=== PATIENT | female | born 1945 | race Caucasian/White ===

== ENCOUNTER 2021-06-04 17:51 | Inpatient (IN) | payer OTHER, MEDICARE ==
[~2021-06-04] VITALS: Ht 160 cm; Wt 71.7 kg
[2021-06-04 19:45] LABS: ABSOLUTE NEUTROPHILS 6.6 thou/uL (1.4-8.2); BASOPHILS 0.4 % (0.0-2.0); EOSINOPHILS 0.9 % (0.0-3.0); HEMATOCRIT 39.2 % (37.0-47.0); HEMOGLOBIN 13.7 gm/dL (12.0-15.0); LYMPHOCYTES 23.7 % (24.0-44.0); MCH 32.1 pg (26.0-34.0); MCHC 34.9 g/dL (28.0-37.0); MCV 92.1 fL (80.0-100.0); MONOCYTES 5.9 % (1.0-8.0); PLATELET COUNT 402 thou/uL (150-400); POLYS 69.1 % (36.0-66.0); RBC 4.26 mil/uL (4.20-5.00); RDW 13.3 % (10.5-14.5); WBC 9.5 thou/uL (4.0-11.0)
[2021-06-04 20:00] VITALS: BP 140/74
[2021-06-04 20:02] LABS: APTT 27.1 Seconds (24.5-32.8); INR 0.97; PROTIME 10.6 Seconds (10.5-12.1)
[2021-06-04 23:20] LABS: URINE BILIRUBIN NEGATIVE (Negative); URINE BLOOD NEGATIVE (Negative); URINE CLARITY CLEAR; URINE COLOR YELLOW; URINE GLUCOSE-RANDOM* NEGATIVE (Negative); URINE KETONES NEGATIVE (Negative); URINE NITRITE-REFLEX NEGATIVE (Negative); URINE PROTEIN (DIPSTICK) NEGATIVE (Negative); URINE UROBILINOGEN 0.2 E.U./dl (0.2-1.0)
[2021-06-04 23:26] LABS: URINE LEUKOCYTES-REFLEX 2+ (Negative)
[2021-06-04 23:28] LABS: BACTERIA-REFLEX 1-9 Few /HPF (None Seen); CASTS None Seen /LPF (None Seen); CRYSTALS None Seen /LPF (None Seen); MUCUS 0-3 Light strn/LPF (None Seen); SQUAMOUS 0-3 Few /LPF (0-3); URINE RBC 1-2 Rare /HPF (NONE SEEN); URINE WBC-REFLEX 6-15 Few /HPF (0-5)
[2021-06-05] VITALS (10 sets, daily range): BP systolic 103–130; BP diastolic 56–69
[2021-06-05] MEDS ORDERED: ASA81BEC PO (00:49)
[2021-06-05] MEDS ORDERED: LIPITOR 40 MG T40 M1 PO (00:50)
[2021-06-05] MEDS ORDERED: LIDODERM1 EACH TRANSDERM (00:51)
[2021-06-05] MEDS ORDERED: COZAAR100 MG PO (00:53)
[2021-06-05] MEDS ORDERED: TOPROL XL100 MG PO (00:55)
[2021-06-05] MEDS ORDERED: NORVASC5 MG PO (00:56)
[2021-06-05] MEDS ORDERED: SUPER THERAVIT1 EACH PO (00:56)
[2021-06-05] MEDS ORDERED: HYDROCHLOROTHIA25 M1 PO (00:57)
[2021-06-05] MEDS ORDERED: PERCOCET 7.5-31 EACH PO (00:58)
[2021-06-05 03:53] LABS: ABSOLUTE NEUTROPHILS 7.5 thou/uL (1.4-8.2); BASOPHILS 0.4 % (0.0-2.0); EOSINOPHILS 0.8 % (0.0-3.0); HEMOGLOBIN 12.6 gm/dL (12.0-15.0); LYMPHOCYTES 20.5 % (24.0-44.0); MCH 31.9 pg (26.0-34.0); MCHC 34.2 g/dL (28.0-37.0); MCV 93.3 fL (80.0-100.0); PLATELET COUNT 334 thou/uL (150-400); POLYS 71.3 % (36.0-66.0); RBC 3.97 mil/uL (4.20-5.00); RDW 13.7 % (10.5-14.5); WBC 10.5 thou/uL (4.0-11.0)
[2021-06-05 05:02] LABS: ALBUMIN 3.8 g/dL (3.4-5.0); CALCIUM 9.7 mg/dL (8.5-10.1); CREATININE 0.6 mg/dL (0.6-1.0); MAGNESIUM 2.3 mg/dL (1.8-2.4); POTASSIUM 3.9 mmol/L (3.5-5.1); TOTAL BILIRUBIN 0.2 mg/dL (0.2-1.0); TOTAL PROTEIN 7.7 g/dL (6.4-8.2)
[2021-06-05 07:09] LABS: GLYCOHEMOGLOBIN (HGB A1C) 5.9 % (4.8-5.6)
--- NOTE | 2021-06-05 07:17 | NUR ---
ASSUMED PT CARE AT 1900, PT IS ALERT AND ORIENTEDX4, SR ON TELE, DENIES CP OR SOA, PT INITIATED ON HEPARIN GTT AND NITRO GTT PER CT, ADMISSION ASSESSMENT, HX AND EDUCATION COMPLETED, MEDS RECONCILED AND PHARMACY UPDATED, HEPARIN TITRATED PER PROTOCOL, REPORT GIVEN TO PRE[facility], PT TRANSPORTED TO PREOP AT AROUND 0635, BELONGINGS SEND TO ICU
--- NOTE | 2021-06-05 08:24 | NUR ---
PT HAVING HT SURGERY TODAY. AWAIT NEW OT ORDERS S/P SURGERY.
--- NOTE | 2021-06-05 08:51 | NUR ---
REQUEST SP ORDERS FOR PT EVAL AND TREAT. Pt OUT FOR SURGERY THIS AM.
[2021-06-05 12:51] LABS: MCV 92.8 fL (80.0-100.0)
[2021-06-05 12:52] LABS: HEMATOCRIT 20.5 % (37.0-47.0); MCH 30.9 pg (26.0-34.0); MCHC 33.3 g/dL (28.0-37.0); RBC 2.21 mil/uL (4.20-5.00); RDW 13.5 % (10.5-14.5); WBC 14.2 thou/uL (4.0-11.0)
[2021-06-05 12:56] LABS: HEMOGLOBIN 6.8 gm/dL (12.0-15.0)
[2021-06-05 13:15] LABS: INR 1.35; PROTIME 14.5 Seconds (10.5-12.1)
[2021-06-05 13:17] LABS: APTT 24.3 Seconds (24.5-32.8)
[2021-06-05 13:41] LABS: POC BE 3 mmol/L (-2.0 to +3.0); POC GLUCOSE 112 mg/dL (70-99); POC HCO3 26.3 mmol/L (22.0-26.0); POC HEMOGLOBIN 11.9 g/dL (12.0-15.0); POC POTASSIUM 4.1 mmol/L (3.5-5.1); POC SODIUM 133 mmol/L (136-145); POC pCO2 35.7 mmHg (35.0-45.0); POC pH 7.475 (7.360-7.450)
[2021-06-05 13:41] LABS: POC BE -3 mmol/L (-2.0 to +3.0); POC CA IONIZED 4.4 mg/dL (4.5-5.3); POC GLUCOSE 164 mg/dL (70-99); POC HCO3 21.7 mmol/L (22.0-26.0); POC HEMOGLOBIN 7.5 g/dL (12.0-15.0); POC POTASSIUM 4.3 mmol/L (3.5-5.1); POC SODIUM 133 mmol/L (136-145); POC pCO2 32.5 mmHg (35.0-45.0); POC pH 7.433 (7.360-7.450)
[2021-06-05 13:41] LABS: POC BE -2 mmol/L (-2.0 to +3.0); POC CA IONIZED 5.6 mg/dL (4.5-5.3); POC GLUCOSE 145 mg/dL (70-99); POC HCO3 23.8 mmol/L (22.0-26.0); POC HEMOGLOBIN 7.1 g/dL (12.0-15.0); POC POTASSIUM 3.7 mmol/L (3.5-5.1); POC SODIUM 135 mmol/L (136-145); POC pCO2 42.8 mmHg (35.0-45.0); POC pH 7.353 (7.360-7.450)
[2021-06-05 13:41] LABS: POC BE 4 mmol/L (-2.0 to +3.0); POC CA IONIZED 5.2 mg/dL (4.5-5.3); POC GLUCOSE 126 mg/dL (70-99); POC HCO3 28.8 mmol/L (22.0-26.0); POC HEMOGLOBIN 10.5 g/dL (12.0-15.0); POC POTASSIUM 4.5 mmol/L (3.5-5.1); POC SODIUM 132 mmol/L (136-145); POC pCO2 45.3 mmHg (35.0-45.0); POC pH 7.411 (7.360-7.450)
[2021-06-05 13:41] LABS: POC BE 0 mmol/L (-2.0 to +3.0); POC CA IONIZED 4.4 mg/dL (4.5-5.3); POC GLUCOSE 146 mg/dL (70-99); POC HCO3 23.6 mmol/L (22.0-26.0); POC HEMOGLOBIN 8.2 g/dL (12.0-15.0); POC POTASSIUM 4.5 mmol/L (3.5-5.1); POC SODIUM 133 mmol/L (136-145); POC pCO2 31.4 mmHg (35.0-45.0); POC pH 7.483 (7.360-7.450)
[2021-06-05 13:41] LABS: POC BE 0 mmol/L (-2.0 to +3.0); POC CA IONIZED 4.5 mg/dL (4.5-5.3); POC GLUCOSE 166 mg/dL (70-99); POC HCO3 24.7 mmol/L (22.0-26.0); POC HEMOGLOBIN 7.5 g/dL (12.0-15.0); POC POTASSIUM 4.6 mmol/L (3.5-5.1); POC SODIUM 135 mmol/L (136-145); POC pCO2 39.9 mmHg (35.0-45.0); POC pH 7.399 (7.360-7.450)
[2021-06-05 14:08] LABS: HEMATOCRIT 29.8 % (37.0-47.0); MCH 31.6 pg (26.0-34.0); MCHC 34.2 g/dL (28.0-37.0); MCV 92.3 fL (80.0-100.0); RBC 3.23 mil/uL (4.20-5.00); RDW 13.5 % (10.5-14.5)
[2021-06-05 14:10] LABS: HEMOGLOBIN 10.2 gm/dL (12.0-15.0)
[2021-06-05 14:18] LABS: CALCIUM 8.8 mg/dL (8.5-10.1); CREATININE 0.7 mg/dL (0.6-1.0); POTASSIUM 4.1 mmol/L (3.5-5.1)
[2021-06-05 14:19] LABS: MAGNESIUM 2.8 mg/dL (1.8-2.4)
[2021-06-05 14:25] LABS: APTT 27.6 Seconds (24.5-32.8); INR 1.12; PROTIME 12.1 Seconds (10.5-12.1)
[2021-06-05 14:29] LABS: BE(vivo) -5.8 mmol/L (-2 to +3); HCO3 20.5 mmol/L (22.0-26.0); PCO2 43.7 mmHg (35.0-45.0); PO2 96.4 mmHg (80.0-100.0); sO2 96.6 % (92.0-98.0)
--- NOTE | 2021-06-05 17:03 | NUR ---
PT ARRIVED FROM THE OR AT 1340 WITH OR STAFF MEMBERS ESCORT, AT THE TIME OF ARRIVAL PT WAS STARTED ON CARDENE GTT PER HTN AND CABG PROTOCOL. PT HAS NOT BEEN ON SEDATION SINCE LEAVING THE OR. PT'S HEMODYNAMIC VALUES ACCEPTABLE, PT PROGRESSED ONWARD TO TITRATING OFF OF THE CARDENE. SBP AROUND 130s SINCE. //CARDIOLOGY SELF CONTAINED BEHAVIOR UNIT TEACHER STOPPED BY TO SEE THE PATIENT. PT'S ALSO SAW THE PT FOR A BRIEF MOMENT, RN WENT OVER PT'S BELONGINGS WITH THE TO ENSURE ALL THE BELONGINGS WERE PRESENT IN THE ROOM. PT'S STATED IMPORTANCE OF CHARGING THE HEARING AID OVER NIGHTM, RN WILL FOLLOW THROUGH AND REPORT THIS TO THE ONCOMING RN. CURRENTLY WORKING ON EXTUBATING THE PATIENT.
[2021-06-05 17:14] LABS: BE(vivo) -5.8 mmol/L (-2 to +3); HCO3 19.7 mmol/L (22.0-26.0); PCO2 38.5 mmHg (35.0-45.0); sO2 97.3 % (92.0-98.0)
[2021-06-05 17:15] LABS: pH 7.326 (7.360-7.450)
[2021-06-05 18:59] LABS: INR 1.1; PROTIME 11.9 Seconds (10.5-12.1)
[2021-06-06 05:19] LABS: HEMATOCRIT 23.4 % (37.0-47.0); MCH 31.7 pg (26.0-34.0); MCHC 34.3 g/dL (28.0-37.0); MCV 92.2 fL (80.0-100.0); RBC 2.54 mil/uL (4.20-5.00); RDW 13.7 % (10.5-14.5); WBC 11.1 thou/uL (4.0-11.0)
[2021-06-06 05:43] LABS: CALCIUM 7.9 mg/dL (8.5-10.1); CREATININE 0.5 mg/dL (0.6-1.0); MAGNESIUM 2.2 mg/dL (1.8-2.4); POTASSIUM 3.3 mmol/L (3.5-5.1)
--- NOTE | 2021-06-06 08:06 | EKG ---
[place] [address] [facility] [employer] [address] ELECTROCARDIOGRAM REPORT Name: EUGENIE SANCHEZ Room #: 249-P [facility] IN M.R.#: [id number] Admission: 06/04/21 Attend Phys: Mik Reynoso MD Discharge: Date of : 47 Report #: [id number] [facility] Test Date: 2021-06-05 Test Time: 14:40:39 Pat Name: EUGENIE SANCHEZ Department: Room: 249 Gender: F Lumber Stacker Operator: ALTHEA : 1945 Requested By: Arias Graf Order Number: [id number] : Mehul Bustillos Measurements Intervals [place] Rate: 106 P: 76 MA: 139 QRS: 83 QRSD: 138 T: -38 QT: 392 QTc: 521 Interpretive Statements Sinus tachycardia IVCD, consider atypical RBBB No previous ECG available for comparison Electronically Signed On 06-06-2021 8:06:33 WHEEL FITTER by Mehul Bustillos [email or web address] <ELECTRONICALLY SIGNED> By: Mehul Bustillos MD, [facility] 06/06/21 0806 1440 1440 Mehul Bustillos MD, FACC /EPI
--- NOTE | 2021-06-06 08:08 | EKG ---
[address] [place] [address] ELECTROCARDIOGRAM REPORT Name: DANIELEUGENIE G Room #: 249-P ADM IN M.R.#: [id number] Admission: 06/04/21 Attend Phys: Mik Reynoso MD Discharge: Date of : 47 Report #: [id number] [facility] Test Date: 2021-06-06 Test Time: 07:19:12 Pat Name: EUGENIE SANCHEZ Department: Room: 249 Gender: F Rheostat Assembler: ALTHEA : 1945 Requested By: Arias Graf Order Number: [id number] : Mehul Bustillos Measurements Intervals [place] Rate: 97 P: 36 W[place]: 116 QRS: 49 QRSD: 108 T: 62 QT: 462 QTc: 587 Interpretive Statements Sinus rhythm Borderline short [place] interval Prolonged QT interval Compared to ECG 06/05/2021 14:40:39 Prolonged QT interval now present Sinus tachycardia no longer present Electronically Signed On 06-06-2021 8:08:47 TRANSITION ASSISTANT by Mehul Bustillos [email or web address] <ELECTRONICALLY SIGNED> By: Mehul Bustillos MD, [facility] 06/06/2108 8 8 Mehul Bustillos MD, [facility] /EPI
[2021-06-06 10:01] LABS: POC BE 0 mmol/L (-2.0 to +3.0); POC CA IONIZED 4.2 mg/dL (4.5-5.3); POC GLUCOSE 120 mg/dL (70-99); POC HCO3 23.4 mmol/L (22.0-26.0); POC HEMOGLOBIN 8.2 g/dL (12.0-15.0); POC SODIUM 130 mmol/L (136-145); POC pCO2 32.9 mmHg (35.0-45.0); POC pH 7.459 (7.360-7.450)
--- NOTE | 2021-06-06 10:38 | NUR ---
Pt s/p CABG x 5 on 06/05. Remains in ICU. Hx HTN, CAD, HLD. Will address any nutrition education needs once transferred out ICU and at more appropriate time.
[2021-06-06 12:58] VITALS: BP 116/49
--- NOTE | 2021-06-06 13:27 | O ---
[facility] [place] [address] OPERATIVE REPORT Name: EUGENIE SANCHEZ Room #: 249-P ADM IN M.R.#: [id number] Admission: 06/04/21 Attend Phys: Mik Reynoso MD Discharge: Date of : 47 Report #: [id number] THIS REPORT FOR: cc: FAM - Family physician unknown FAM - Family physician unknown Arias Graf MD ~ DATE OF SERVICE: 06/05/2021 PREOPERATIVE DIAGNOSIS: Coronary artery disease. POSTOPERATIVE DIAGNOSIS: Coronary artery disease. OPERATION: Coronary artery bypass x 5 including left internal mammary artery to left anterior descending artery, saphenous vein to diagonal and marginal arteries and saphenous vein to posterior descending and posterolateral branches of the right coronary and endoscopic harvest, left greater saphenous vein. SURGEON: Arias Graf MD ASSISTANTS: BRAYAN Salinas. ANESTHESIA: General. INDICATIONS: The patient is a 75-year-old sent from [facility]. The patient was admitted to that facility with non-ST elevation infarct. Catheterization demonstrated a tight culprit lesion on the right coronary artery as well as LAD, diagonal and marginal stenosis. Left ventricular function is satisfactory overall. FINDINGS AND TECHNIQUE: After general anesthesia was established, saphenous vein was harvested with an endoscopic approach and prepared for use as a conduit. Exposure was obtained through median sternotomy. Left internal mammary artery was harvested from chest wall. Pericardial well was made. Cannulation sutures were placed. Heparin was given. Aorta was cannulated. Right atrium was cannulated. Cardioplegia needle was positioned in the aortic root. Retrograde cardioplegia catheter was placed in the coronary sinus. Cardiopulmonary bypass was established. The aorta was cross clamped. Antegrade and retrograde cardioplegia were given. Ice was poured in the pericardial well. The heart was stopped. During electromechanical arrest, the distal anastomoses were performed. An end-to-side anastomosis was made between vein and the posterolateral branch of the right coronary. Cold cardioplegia was given. The same segment of vein was sewn in olwu-qg-[id number] fashion to the posterior descending artery. The PDA had diffuse plaque within it. Cold cardioplegia was given. [facility] [address] [place] [address] OPERATIVE REPORT Name: EUGENIE SANCHEZ Room #: 249-P [facility] IN M.R.#: [id number] Admission: 06/04/21 Attend Phys: Mik Reynoso MD Discharge: Date of : 47 Report #: [id number] A separate segment of vein was sewn in end-to-side fashion to the large marginal artery. Cold cardioplegia was given. The same segment of vein was sewn in dbzb-dm-vjuf fashion to the diagonal artery. Cold cardioplegia was given. Left internal mammary artery was sewn in end-to-side fashion to the left anterior descending artery. Patency of this vessel was checked with the temperature technique and the Doppler. Cold cardioplegia was given. Two proximal anastomoses were performed. These were complete. Warm retrograde cardioplegia was given followed by warm continuous blood to the coronary sinus. When this infusion was complete, the crossclamp was removed. De-airing maneuvers were performed. The anastomoses were inspected and found to be satisfactory. As the patient warmed, nice cardiac activity resumed, chest tubes and pacing wires were placed. A marker was placed around the proximal anastomoses. When the patient was warmed, she was weaned from cardiopulmonary bypass. Venous cannula was removed. Protamine was given. The aortic cannula was removed. Flows were measured in the bypass grafts. As the patient warmed, nice cardiac activity resumed. Chest tubes and pacing wires were placed. A marker was placed around the proximal anastomoses. When the patient was warmed, she was weaned from cardiopulmonary bypass. Venous cannula was removed. Protamine was given. The aortic cannula was removed. Flows were measured in the bypass grafts. When hemostasis was satisfactory, chest was irrigated with antibiotic solution and closed in the usual fashion. The patient was taken to the Intensive Care Unit in good condition having tolerated the procedure well. All counts were reported as correct. <ELECTRONICALLY SIGNED> By: Arias Graf MD 06/06/21 1327 1833 1841 Arias Graf MD /nt
--- NOTE | 2021-06-06 14:57 | NUR ---
Case opened to follow for dc planning. Pt is in ICU pod#1 CABG and doing well. She is up to the chair and on 1liter of o2. She is alert and conversant. Her spouse is at bedside. They are from [place], [place]. She transfered from [facility] emergently for heart surgery. She indicates she was indep with gait/adl's prior to admission. She and her spouse both drive and share IADLs. She has 3 steps to enter her home and 10 up from the basement garage. Her pcp is Dr. Bubba Santiago out of [facility]. Spouse's cell number is [phone]. PT/OT have evaluated the pt. CM role introduced. Will follow along should the pt need any dme /or hh referrals.
--- NOTE | 2021-06-06 18:21 | NUR ---
pt progressed today. primarily chronic back, also surgical discomfort controlled with hydrocodone. lidocaine patch to back enhances discomfort relief. SR, rosalina wrap removed, sy scds intact, pacing wires capped, mct x2 removed, well tolerated. insulin and amiodarone gtts dc'd, cardene titrated off. swan discontinued, introducer intact. down to room air, then replaced at 1 L/nc related to exertion of returning to bed. (pt up to chair for @ 6 hrs today- well tolerated.) pulling 500-600 on incentive spirometer, scant secretions coughed up. tolerating heart healthy diet, adequate urine output. spouse present for most of day. providing support to his . Dr. Graf present to see pt x 2.
[2021-06-07] VITALS (12 sets, daily range): BP systolic 89–138; BP diastolic 37–81
[2021-06-07 05:32] LABS: HEMATOCRIT 22.9 % (37.0-47.0); HEMOGLOBIN 7.8 gm/dL (12.0-15.0); MCH 31.2 pg (26.0-34.0); MCHC 33.8 g/dL (28.0-37.0); MCV 92.3 fL (80.0-100.0); RBC 2.48 mil/uL (4.20-5.00); WBC 11.9 thou/uL (4.0-11.0)
--- NOTE | 2021-06-07 13:00 | NUR ---
in early am, Dr. Spence, Dr. Miller present to see pt. when pt up to chair with Baltazar, physical therapist this am. brief nausea with exertion, cool wash cloth applied, nausea resolved. Dr. Graf present to see pt in am. assisted back to bed with Baltazar, physical therapist. hydrocodone administered for chronic lower mid-back discomfort. nausea with emesis- zofran iv given, see mars. pt stated the orange juice for breakfast may have caused the nausea. spouse present in room providing support to his .
--- NOTE | 2021-06-07 18:16 | NUR ---
1630 troubleshooting edson related to dampened waveform, unable to draw back blood, line flushes. 1700 Dr. Graf present. updated on pt status. pacing wires removed, pct removed. portable chest xray completed, Dr. Graf present to observe. 1730 radial edson and frederick removed. 181 pt sat on edge of bed, well tolerated, then up to chair. all well tolerated. coughed up moderate amount sanchez sputum. appetite poor, denies nausea.
--- NOTE | 2021-06-07 19:05 | NUR ---
Ashlee, CCU RN called ICU to receive report. report given at 1900. transferring pt to floor in wheelchair.
[2021-06-08] VITALS (7 sets, daily range): BP systolic 93–110; BP diastolic 33–64
--- NOTE | 2021-06-08 07:43 | NUR ---
pt arrived from icu to room 200 nausea continues iv zofran given and crackers later agreed to broth and crackers and her po meds for the noc no futher c/o of nausea, prn pain meds given at hs repositions self in bed using her heart pillow, vss, replaced lateral dressing that was saturated with seriosang. drainage and reinfoced with foam tape, up to void with assist to bsc several times thru the noc, report given to next shift to con't ppoc.
[2021-06-09 03:00] VITALS: BP 106/58
[2021-06-09 04:34] LABS: HEMATOCRIT 22.9 % (37.0-47.0); HEMOGLOBIN 7.7 gm/dL (12.0-15.0); MCH 31.4 pg (26.0-34.0); MCHC 33.8 g/dL (28.0-37.0); MCV 92.9 fL (80.0-100.0); RBC 2.47 mil/uL (4.20-5.00); RDW 13.7 % (10.5-14.5); WBC 9.7 thou/uL (4.0-11.0)
[2021-06-09 04:57] LABS: CALCIUM 8.2 mg/dL (8.5-10.1); CREATININE 0.5 mg/dL (0.6-1.0)
--- NOTE | 2021-06-09 06:29 | NUR ---
ASSUMED PT CARE AT 1900, ALERT AND ORIENTED, C/O BACK AND STERNUM PAIN, PRN TYL AND HYDROCODONE GIVEN WITH PARTIAL RELIEF, SR ON TELE, ASSESSMENTS CHARTED, MEDS GIVEN PER EMAR, VITAL SIGNS STABLE, NO BOWEL MOVEMENT THIS SHIFT, COLACE ADDED BID, NO EVENTS THIS SHIFT, WILL PASS ON REPORT TO DAY NURSE FOR CONTINUED POC
[2021-06-09 07:00] VITALS: BP 119/52
--- NOTE | 2021-06-09 08:11 | EKG ---
[address] [email or web address] [address] ELECTROCARDIOGRAM REPORT Name: EUGENIE SANCHEZ Room #: 200-I ADM IN .R.#: [id number] Admission: 06/04/21 Attend Phys: Mik Reynoso MD Discharge: Date of : 47 Report #: [id number] [facility] Test Date: 2021-06-09 Test Time: 07:38:06 Pat Name: EUGENIE SANCHEZ Department: Room: 200 I Gender: F Director Of Academic Support: : 1945 Requested By: Arias Graf Order Number: [id number] : Mehul Bustillos Measurements Intervals [place] Rate: 88 P: 64 [place]: 161 QRS: 64 QRSD: 109 T: 33 QT: 381 QTc: 461 Interpretive Statements Sinus rhythm Compared to ECG 06/06/2021 07:19:12 Prolonged QT interval no longer present Electronically Signed On 06-09-2021 8:11:05 COTTON CLASSER by Mehul Bustillos [email or web address] <ELECTRONICALLY SIGNED> By: Mehul Bustillos MD, [facility] 06/09/2111 0738 7 Mehul Bustillos MD, FACC /EPI
[2021-06-09 11:15] VITALS: BP 92/46
[2021-06-09 15:15] VITALS: BP 102/54
--- NOTE | 2021-06-09 15:55 | NUR ---
ASSUMED CARE THIS AM, PT ALERT AND ORIENTED X4. CABG POST OP DAY 4, COMPLAINS OF STERNAM AND BACK PAIN. HYDROCODONE GIVEN PER ORDER AND LIDOCAINE [PATCH APLLIED TO THE BACK. PT HAD A LARGE LOOSE BM THIS AM. HAS BEEN USING THE INCENTIVE SPIROMETER FREQUENTLY AND UP IN THE CHAIR MAYITO. UP WITH 1 ASSIST TO BATHROOM. FALL PRECAUTIONS IN PLACE, DENIES ANY NEEDS MAYITO, WILL CONTINUE TO MONITOR.
[2021-06-09 19:28] VITALS: BP 133/86
[2021-06-09 20:15] VITALS: BP 97/50
[2021-06-10] VITALS (8 sets, daily range): BP systolic 94–117; BP diastolic 42–81
--- NOTE | 2021-06-10 05:04 | NUR ---
alert and oriented, in good spirits and feeling better, assessments as charted, meds given as per jun, c/o sternal pain, pain meds givenx1 with relief, up to the bathroomx1 assist, progressing well towards discharge
--- NOTE | 2021-06-10 09:47 | NUR ---
CHART REVIEWED AND DISCUSSED [facility] CARE TEAM. CM MET WITH PT THIS DAY. THERAPY RECOMMENDING PT DC HOME WITH OUTPT THERAPY OR HH. PT VOICED SHE WOULD LIKE HOME HEALTH. CM REVIEWED HH AGENCIES IN [place]. PT VOICED SHE WOULD LIKE [facility]. CM NOTIFIED [facility] AND THEY ACCEPT. NO FURTHER CM INTERVENTIONS INDICATED AT THIS TIME. CM FOLLOWING FOR DC PLANNING.
[2021-06-10] MEDS ORDERED: METOPROLOL SUCC50 MG PO (15:45)
--- NOTE | 2021-06-10 20:42 | NUR ---
PT IS AXOX4, SOMEWHAT ANXIOUS, COOPERATIVE. VS BP 90/40s, AFEBRILE, SR ON THE MONITOR. PT C/O GENERALIZED PAIN. POST OP CABG DAY 5. DR SHARP CONSULTED. RN TO HAVE PT SHOWER, CHANGE DRESSING, AND D/C. PT AT THE BEDSIDE. EDUCATION COMPLETED ON RX, FOLLOW UP, AND DRESSING CARE. PT COMMUNICATED UNDERSTANDING. PT D/C WITH VIA PERSONAL VEHICLE. NO CONCERNS AT THIS TIME.
== END 2021-06-10 20:46 | disposition home health service (06) | DRG 235 ==
LOC: ICU 17:51 → 2N 17:51 → TBA 06-05 07:11 → ICU 06-05 14:19 → 2N 06-07 19:28
PROVIDERS: Hospitalist; Nurse Practitioner; Surgery Vascular Surgery; ADMIT Hospitalist; ATTEND Hospitalist
DX: I25.10 Atherosclerotic heart disease of native coronary artery without angina pectoris (principal); I21.4 Non-ST elevation (NSTEMI) myocardial infarction; D62 Acute posthemorrhagic anemia; Z20.822 Contact with and (suspected) exposure to COVID-19; I10 Essential (primary) hypertension; E78.5 Hyperlipidemia, unspecified; I65.29 Occlusion and stenosis of unspecified carotid artery; Z87.891 Personal history of nicotine dependence; J44.9 Chronic obstructive pulmonary disease, unspecified; Z85.3 Personal history of malignant neoplasm of breast; Z95.1 Presence of aortocoronary bypass graft
CPT/HCPCS: 10078; 10081; 47000; 47001; 47002; 47297; 50010; 50249; 50668; 51301; 52131; 52259; 52287; 53327; 53358; 54118; 56455; 56524; 56525; 56526; 56527; 56528; 56531; 56534; 56668; 56719; 56760; 56898; 57093; 57167; 58585; 58901; 58918; 62110; 62950; 65003; 65020; 65090; 65120; 65135